=== PATIENT | female | born 1945 | race Caucasian/White ===

== ENCOUNTER → 2017-04-30 | Outpatient (CLI) | payer MEDICARE, OTHER | LOC: HEART 5 13:30 | DX: M79.606 Pain in leg, unspecified (principal); I83.93 Asymptomatic varicose veins of bilateral lower extremities; R60.9 Edema, unspecified ==

== ENCOUNTER 2021-05-31 00:12 | Emergency (ER) | payer MEDICARE, OTHER ==
[2021-05-31 03:49] LABS: HEMOGLOBIN 11.3 gm/dl (12.3-15.3); RED BLOOD COUNT 4.06 M/UL (4.00-5.10); WHITE BLOOD COUNT 8.6 K/UL (4.5-11.0)
[2021-05-31 04:21] LABS: BUN/CREATININE RATIO 25 (0-10)
== END 2021-05-31 05:06 | disposition home or self-care (01) ==
LOC: ER1 00:12
PROVIDERS: Physician Assistant
DX: R10.30 Lower abdominal pain, unspecified (principal); I50.9 Heart failure, unspecified; E11.9 Type 2 diabetes mellitus without complications; Z87.442 Personal history of urinary calculi; Z88.1 Allergy status to other antibiotic agents; Z87.891 Personal history of nicotine dependence
CPT/HCPCS: 51701; 80053; 81001; 83690; 85025; 85610; 87086; 99284

== ENCOUNTER → 2021-09-20 | Outpatient (CLI) | payer MEDICARE, OTHER | LOC: HEART 5 08-16 15:00 | DX: I35.2 Nonrheumatic aortic (valve) stenosis with insufficiency (principal); I27.20 Pulmonary hypertension, unspecified | CPT/HCPCS: 93306 ==

== ENCOUNTER → 2021-10-22 | Outpatient (CLI) | payer MEDICARE, OTHER | LOC: HEART 5 13:36 | DX: E66.9 Obesity, unspecified (principal) | CPT/HCPCS: 71046; 94060; 94729 ==

== ENCOUNTER → 2022-04-19 | Outpatient (CLI) | payer MEDICARE, OTHER | LOC: KOH-I 12-06 14:00 | DX: J84.10 Pulmonary fibrosis, unspecified (principal) | CPT/HCPCS: 71250 ==

== ENCOUNTER → 2022-06-27 | Outpatient (CLI) | payer MEDICARE, OTHER | LOC: RT 15:34 | DX: R09.02 Hypoxemia (principal) | CPT/HCPCS: 36600; 82803 ==